=== PATIENT | female | born 1980 | race African-American/Black ===

== ENCOUNTER 2023-09-16 09:13 | Emergency (ER) | payer SELFPAY ==
[~2023-09-16] VITALS: Ht 157.5 cm; Wt 65.3 kg
[2023-09-16] MEDS ORDERED: FAMOTIDINE 20 MG/2 ML VIAL IV STA (09:29)
[2023-09-16] MEDS ORDERED: DONNATAL/LIDOCAINE/MAALOX 30 ML SUSP PO SCH (09:30)
[2023-09-16] MEDS ORDERED: SODIUM CHLORIDE 0.9% 500ML 500 ML IV ONE (09:45)
[2023-09-16] MEDS ORDERED: BELLADONNA ALK/PHENOBARBITAL 5 ML UDC ONE ×2 (09:48→09:55)
[2023-09-16] MEDS ORDERED: MAGNESIUM/ALUMINUM/SIMETHICONE 30 ML UDC ONE (09:48)
[2023-09-16] MEDS ORDERED: SODIUM CHLORIDE 0.9% 1000ML 1,000 ML ONE (09:49)
[2023-09-16] MEDS ORDERED: LIDOCAINE VISC 2% SOLN 100ML BLT ONE (09:50)
[2023-09-16] MEDS ORDERED: FAMOTIDINE 20 MG/2 ML VIAL IV ONE (09:50)
[2023-09-16] MEDS ORDERED: IOPAMIDOL 370 MG/ML 100 ML INFUS..BTL INJ ONE (09:54)
[2023-09-16] MEDS ORDERED: PEPCID20 MG PO (10:43)
[2023-09-16 10:52] VITALS: O2SAT 98
[2023-09-17] MEDS ORDERED: POTASSIUM CHLORIDE 20 MEQ TAB CR PO SCH (09:00)
== END 2023-09-16 10:57 | disposition home or self-care (01) ==
LOC: FSED 09:17
DX: R11.2 Nausea with vomiting, unspecified (principal); E87.6 Hypokalemia; R10.13 Epigastric pain; R19.7 Diarrhea, unspecified
CPT/HCPCS: 36415; 74177; 83690; 99284; J7030; Q9967

== ENCOUNTER 2024-05-06 08:03 | Emergency (ER) | payer SELFPAY ==
[~2024-05-06] VITALS: Ht 162.6 cm; Wt 66.3 kg
[~2024-05-06 08:03] MED LIST: PEPCID20 MG PO
[2024-05-06 08:35] VITALS: PULSE 100; RESP 16; TEMP 97.9; O2SAT 100
[2024-05-06] MEDS: BACITRACIN ZINC 0.9GM TP ONE (09:07)
[2024-05-06] MEDS: TETANUS/DIPHTHERIA TOX ADULT 0.5 ML SYR IM ONE (09:08)
== END 2024-05-06 08:35 | disposition home or self-care (01) ==
LOC: FSED 08:11
DX: T24.112A Burn of first degree of left thigh, initial encounter (principal); X58.XXXA Exposure to other specified factors, initial encounter; I10 Essential (primary) hypertension; F17.210 Nicotine dependence, cigarettes, uncomplicated
CPT/HCPCS: 90471; 90714; 96372; 99283